=== PATIENT | male | born 1990 | race Caucasian/White ===

== ENCOUNTER 2023-09-04 00:45 | Emergency (ER) | payer OTHER ==
[~2023-09-04] VITALS: Ht 172.7 cm; Wt 80.3 kg
[2023-09-04 01:49] VITALS: BP 119/95; PULSE 114; RESP 16; TEMP 98.5
== END 2023-09-04 06:23 | disposition left against medical advice (07) ==
LOC: ER 00:45
DX: M54.9 Dorsalgia, unspecified (principal); R42 Dizziness and giddiness; Z53.21 Procedure and treatment not carried out due to patient leaving prior to being seen by health care provider
CPT/HCPCS: 99281